=== PATIENT | female | born 1930 | race Caucasian/White ===

== ENCOUNTER → 2016-05-09 | Outpatient (CLI) | payer OTHER | END | disposition home or self-care (01) | LOC: CFH 09:56 | PROVIDERS: ATTEND Internal Medicine Cardiovascular Disease | DX: I08.1 Rheumatic disorders of both mitral and tricuspid valves (principal); I37.1 Nonrheumatic pulmonary valve insufficiency | CPT/HCPCS: 93306 ==

== ENCOUNTER 2016-06-09 13:11 | Emergency (ER) | payer OTHER ==
[~2016-06-09] VITALS: Ht 165.1 cm; Wt 70.9 kg
[2016-06-09 13:17] VITALS: BP 172/89
[2016-06-09] MEDS ORDERED: DIPH,PERTUSS(ACELL),TET VAC/PF 0.5 ML IM-VACC ONE (14:00)
[2016-06-09] MEDS ORDERED: L.E.T SOLUTION TP ONE ×2 (14:00→14:32)
[2016-06-09] MEDS ORDERED: LIDOCAINE 1%, 20ML ONE ×2 (15:09→15:48)
[2016-06-09] MEDS ORDERED: LIDOCAINE 1%, 20ML SQ ONE (15:30)
== END 2016-06-09 16:39 | disposition home or self-care (01) ==
LOC: ED 16:30
DX: S06.0X0A Concussion without loss of consciousness, initial encounter (principal); S01.01XA Laceration without foreign body of scalp, initial encounter; W18.09XA Striking against other object with subsequent fall, initial encounter; Y93.89 Activity, other specified; Y92.009 Unspecified place in unspecified non-institutional (private) residence as the place of occurrence of the external cause; Y99.9 Unspecified external cause status
CPT/HCPCS: 13121; 13122; 70450; 90471; 90715

== ENCOUNTER 2016-06-19 08:32 | Emergency (ER) | payer OTHER ==
[~2016-06-19] VITALS: Ht 162.6 cm; Wt 71.6 kg
[2016-06-19 08:33] VITALS: BP 158/81
[2016-06-19] MEDS ORDERED: BACITRACIN ZINC OINT 500U/GM, 0.9 GM ONE (09:15)
== END 2016-06-19 09:29 | disposition home or self-care (01) ==
LOC: ED 09:22
DX: Z48.02 Encounter for removal of sutures (principal); I10 Essential (primary) hypertension
CPT/HCPCS: 99281